=== PATIENT | male | born 1990 | race Caucasian/White ===

== ENCOUNTER 2021-04-03 17:43 | Inpatient (IN) | payer OTHER ==
[~2021-04-03] VITALS: Ht 172.7 cm; Wt 81.8 kg
[2021-04-03] MEDS ORDERED: ONDANSETRON HCL 4 MG/2 ML VIAL IVP PRN (19:00)
[2021-04-03] MEDS ORDERED: 0.9% SODIUM CHLORIDE 10 ML SYRINGE IVP PRN (19:00)
[2021-04-03] MEDS ORDERED: QUEtiapine FUMARATE 25 MG TABLET PO ONE (19:00)
[2021-04-03] MEDS ORDERED: ACETAMINOPHEN 325 MG TABLET PO PRN (19:00)
[2021-04-03 19:34] LABS: BASOPHILS % (AUTO) 0.6 % (0.0-2.0); HEMATOCRIT 44.6 % (41-53); HEMOGLOBIN 14.9 g/dL (13.5-17.5); LYMPHOCYTES # (AUTO) 2.1 K/uL (1.0-4.8); MEAN CORPUSCULAR HEMOGLOBIN 30.6 pg (26.0-34.0); MEAN CORPUSCULAR HGB CONC 33.4 G/dL (31.0-37.0); MEAN CORPUSCULAR VOLUME 92 fL (80-100); MONOCYTES # (AUTO) 0.6 K/uL (0.1-1.0); MONOCYTES % (AUTO) 7.1 % (2.0-9.0); NEUTROPHILS # (AUTO) 5.1 K/uL (1.8-7.7); NEUTROPHILS % (AUTO) 64.3 % (40.0-70.0); PLATELET COUNT (AUTO) 257 K/uL (150-450); RED BLOOD CELL COUNT(AUTO) 4.85 MIL/uL (4.50-5.90)
[2021-04-03 19:57] LABS: COVID AG,FIA SOURCE NASOPHARYNGEAL
[2021-04-03 20:28] LABS: ANION GAP 6 mmol/L (8-16); CALCIUM, TOTAL 8.6 mg/dL (8.8-10.5); CARBON DIOXIDE 29 mmol/L (22-29); CHLORIDE 107 mmol/L (98-107); CREATININE 0.92 mg/dL (0.60-1.30); GLOMERULAR FILTR. RATE CALC > 60 mL/min (>60); GLUCOSE,RANDOM 92 mg/dL (70-110); POTASSIUM 4.4 mmol/L (3.5-5.1); SODIUM SERUM 142 mmol/L (136-145); UREA NITROGEN, BLOOD 15 mg/dL (7-18)
[2021-04-03 20:34] LABS: ALANINE AMINOTRANSFERASE 8 U/L (12-78); ALBUMIN 3.6 g/dL (3.4-5.0); ALKALINE PHOSPHATASE 81 U/L (46-116); ASPARTATE AMINOTRANSFERASE 11 U/L (15-37); BILIRUBIN,TOTAL 0.4 mg/dL (0.1-1.0); TOTAL PROTEIN, SERUM 6.5 g/dL (6.4-8.2)
[2021-04-03 21:40] VITALS: BP 149/94
[2021-04-04 07:45] VITALS: BP 110/59
[2021-04-04] MEDS ORDERED: HydrOXYzine PAMOATE 25 MG CAPSULE PO PRN (09:45)
[2021-04-04] MEDS: HALOPERIDOL 5 MG TABLET PO PRN (10:00)
[2021-04-04] MEDS: OLANZapine 5 MG TABLET PO SCH ×2 (10:00→20:54)
[2021-04-04 15:37] VITALS: BP 119/63
[2021-04-04 20:56] VITALS: BP 107/63
[2021-04-05 05:05] VITALS: BP 101/56
[2021-04-05 07:37] VITALS: BP 105/57
[2021-04-05] MEDS: OLANZapine 5 MG TABLET PO SCH ×2 (08:35→20:04)
[2021-04-05 16:21] VITALS: BP 109/60
[2021-04-05 19:48] VITALS: BP 128/78
[2021-04-06 05:04] VITALS: BP 109/51
[2021-04-06 07:52] VITALS: BP 112/58
[2021-04-06] MEDS: OLANZapine 5 MG TABLET PO SCH (08:31)
[2021-04-06 20:06] VITALS: BP 124/65
[2021-04-06] MEDS: OLANZapine 10 MG TABLET PO SCH (20:18)
[2021-04-06] MEDS: HALOPERIDOL 5 MG TABLET PO PRN (20:21)
[2021-04-07 04:46] VITALS: BP 121/62
[2021-04-07 07:50] VITALS: BP 119/84
[2021-04-07] MEDS: OLANZapine 10 MG TABLET PO SCH (08:05)
== END 2021-04-07 20:40 | DRG 885 ==
LOC: EMS 17:46 → 6S 21:07
PROVIDERS: ADMIT Hospitalist; ATTEND Hospitalist
DX: F20.0 Paranoid schizophrenia (principal); R45.851 Suicidal ideations; Z20.822 Contact with and (suspected) exposure to COVID-19
CPT/HCPCS: 80053; 85025; 99285